=== PATIENT | male | born 1995 | race Caucasian/White ===

== ENCOUNTER 2020-06-07 18:51 | Emergency (ER) | payer BC ==
[~2020-06-07] VITALS: Ht 144.8 cm; Wt 74.8 kg
[2020-06-07 18:55] VITALS: BP 141/69
[2020-06-07] MEDS ORDERED: IBUP-2213 PO (19:55)
[2020-06-07 20:13] VITALS: BP 132/70
== END 2020-06-07 20:14 | disposition home or self-care (01) ==
LOC: MED 18:51
DX: R07.9 Chest pain, unspecified (principal)
CPT/HCPCS: 71045; 93005; 99283

== ENCOUNTER 2020-06-30 10:36 | Emergency (ER) | payer BC ==
[~2020-06-30] VITALS: Ht 154.9 cm; Wt 79.4 kg
[~2020-06-30 10:36] MED LIST: IBUP-2213 PO
[2020-06-30 10:42] VITALS: BP 153/82
--- NOTE | 2020-06-30 10:46 | NUR ---
AMBULATED TO BED 10
--- NOTE | 2020-06-30 10:58 | NUR ---
25/M presents to ED with c/o upper mid back pain x4 days. Patient states 4 days ago he came home from work and was picking up his child when the pain started. Patient denies trauma, states he has been taking Ibuprofen that has been providing some relief for about 4 hours at a time. Patient denies abdominal pain/nausea/vomiting and diarrhea. Patient denies any dysuria or hematuria. Patient placed in gown, in a position of comfort.
--- NOTE | 2020-06-30 11:24 | NUR ---
Patient taken to xray via wheelchair
--- NOTE | 2020-06-30 11:30 | NUR ---
Patient returned from xray
[2020-06-30] MEDS ORDERED: ACET-8386 PO (12:10)
--- NOTE | 2020-06-30 12:15 | NUR ---
Patient discharged with v/s stable. Written and verbal after care instructions given and explained. Patient alert, oriented and verbalized understanding of instructions. Ambulatory with steady gait. All questions addressed prior to discharge. ID band removed. Patient advised to follow up with PMD. Rx of [place] given. Patient educated on indication of medication including possible reaction and side effects. Opportunity to ask questions provided and answered.
[2020-06-30 12:18] VITALS: BP 153/82
== END 2020-06-30 12:15 | disposition home or self-care (01) ==
LOC: MED 10:36
DX: M54.9 Dorsalgia, unspecified (principal); Z79.899 Other long term (current) drug therapy
CPT/HCPCS: 72100; 81002; 99283